=== PATIENT | male | born 1965 | race Caucasian/White ===

== ENCOUNTER 2021-06-12 15:24 | Emergency (ER) | payer BC ==
[~2021-06-12 15:24] MED LIST: ASPIR 8181 MG PO; ELAVIL 25 MG TA25 MG PO; GABAPENTIN600 MG PO; NORCO 10-325 T1 EACH PO; PRINIVIL20 MG PO; PROTONIX 20 MG20 MG PO
[2021-06-12 16:34] LABS: HEMOGLOBIN 15.2 gm/dl (14.0-17.5); RED BLOOD COUNT 4.77 M/UL (4.20-5.50); WHITE BLOOD COUNT 10.4 K/UL (4.5-11.0)
[2021-06-12 17:02] LABS: BUN/CREATININE RATIO 16 (0-10)
[2021-06-12] MEDS ORDERED: PREDNISONE20 MG PO (20:43)
== END 2021-06-12 21:00 | disposition home or self-care (01) ==
LOC: ER1 15:24
PROVIDERS: Student in an Organized Health Care Education/Training Program
DX: J40 Bronchitis, not specified as acute or chronic (principal); I10 Essential (primary) hypertension; F17.210 Nicotine dependence, cigarettes, uncomplicated
CPT/HCPCS: 71045; 80053; 82550; 82553; 83880; 84439; 84443; 84484; 85025; 85379; 93005; 99285; Q9967